=== PATIENT | female | born 1945 | race Caucasian/White ===

== ENCOUNTER → 2016-06-26 | Outpatient (REF) | payer MEDICARE ==
[~2016-06-26] MED LIST: ACET65TA OR; ADVI200T PO; ALEVE OR; APAP325T PO; ASPI1TAB PO; BABY81CH PO; BENADRYL PO; BYST5TAB2 PO; CALCIUM/VITAMIN D PO; CHOLECALCIFEROL PO; CLAR10TA13 PO; CLAR1TAB2 PO; CYMB1CAP5 PO; DARV100T OR; ENTO3CAP5 PO; FAMC250T3 PO; GAVICHW PO; LOMO2.5T PO; MAGN400T5 PO; OMEP20TA7 OR; OMEP40CA2 PO; PERC10TA17 PO; PERC5TAB8 PO; PERCOCET PO; PERI2TAB PO; POTA10CA PO; PRED1TABL PO; PREDPOW10 OR; PROC10TA PO; VITAMIN D50000 UNT OR; ZOFR20TA PO
[2016-06-26 18:49] LABS: FOLATE 3.1 NG/ML (>5.4)
== END ==
LOC: M LABDRAWC 16:40
PROVIDERS: ATTEND Nurse Practitioner Family
DX: D51.0 Vitamin B12 deficiency anemia due to intrinsic factor deficiency (principal)

== ENCOUNTER 2017-03-05 15:04 | Emergency (ER) | payer MEDICARE ==
[~2017-03-05] VITALS: Ht 162.6 cm; Wt 53.6 kg
[~2017-03-05 15:04] MED LIST changes: -APAP325T PO; +APAP325T4 PO; -CLAR10TA13 PO; +CLAR1TAB13 PO; -PERC10TA17 PO; +PERC10TA26 PO
[2017-03-05] MEDS ORDERED: NITROGLYCERIN 0.4 MG SUBL TABLET SL PRN (15:30)
[2017-03-05 15:44] LABS: MEAN CORPUSCULAR HEMOGLOBIN 32.4 pg (27.0-33.0); MEAN CORPUSCULAR HGB CONC 34.9 g/dl (32.0-36.5); MEAN CORPUSCULAR VOLUME 92.9 fl (80.0-96.0); PLATELET COUNT, AUTOMATED 468 10^3/uL (150-450); RED CELL DISTRIBUTION WIDTH 12.2 % (11.5-14.5); WHITE BLOOD COUNT 26.1 10^3/uL (4.0-10.0)
[2017-03-05 15:46] LABS: ADD MANUAL DIFFER YES; DIFF SLIDE NUMBER 255
[2017-03-05 15:54] LABS: INR 1.04
[2017-03-05] MEDS ORDERED: ISOVUE-370 76% 100ML VIAL (Q9967) As Ordered ONE (15:57)
--- NOTE | 2017-03-05 16:17 | ECGEPIP ---
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
[2017-03-05 16:19] LABS: ALBUMIN 2.7 GM/DL (3.2-5.2); ALBUMIN/GLOBULIN RATIO 0.75 (1.00-1.93); ALKALINE PHOSPHATASE 103 U/L (45-117); ALT/SGPT 15 U/L (12-78); ANION GAP 11 MEQ/L (8-16); AST/SGOT 10 U/L (15-37); BILIRUBIN,DIRECT 0.2 MG/DL (0.0-0.2); BILIRUBIN,TOTAL 0.5 MG/DL (0.2-1.0); BLOOD UREA NITROGEN 9 MG/DL (7-18); CALCIUM LEVEL 8.6 MG/DL (8.8-10.2); CARBON DIOXIDE LEVEL 22 MEQ/L (21-32); CHLORIDE LEVEL 96 MEQ/L (98-107); CREATININE FOR GFR 0.57 MG/DL (0.55-1.02); GLOMERULAR FILTRATION RATE > 60.0 (>39); GLUCOSE, FASTING 131 MG/DL (83-110); POTASSIUM SERUM 4.7 MEQ/L (3.5-5.1); SODIUM LEVEL 129 MEQ/L (136-145); TOTAL PROTEIN 6.3 GM/DL (6.4-8.2)
[2017-03-05] MEDS ORDERED: OXYC1TAB23 PO (16:23)
[2017-03-05] MEDS ORDERED: ASPI81TA85 PO (16:23)
[2017-03-05] MEDS ORDERED: ROBA750T4 PO (16:23)
[2017-03-05] MEDS ORDERED: MAGN400C2 PO (16:23)
[2017-03-05] MEDS ORDERED: LISI10TA4 PO (16:23)
[2017-03-05] MEDS ORDERED: PRED10TA2 PO (16:23)
[2017-03-05] MEDS ORDERED: NS 1,000 ML IV SCH (16:27)
--- NOTE | 2017-03-05 16:27 | REP ---
Portable chest x-ray: Single view: History: Chest pain. Comparison chest x-ray 05/15/2016. Comparison chest CT study of 03/08/2016. Findings: The patient is status post bilateral Penaloza guanako placement in the thoracolumbar spine. EKG electrodes are seen. The thoracic aorta is again noted to be quite dilated. The chest CT study from February of 2016 showed a 4.7 cm proximal descending distal transverse segment aneurysm. This appears larger than on the chest x-ray from 05/15/2016, consider repeat chest CT study, preferably with IV contrast. The lungs are well inflated and clear. Pleural angles are sharp. Heart size is not increased. Impression: Aneurysmally dilated thoracic aorta. This appears more prominent than on the 05/15/2016.6 prior study. Recommend reevaluation with chest CT, preferably with IV contrast, CT angiogram. Signed by Cruz Lucero MD 03/05/2017 04:45 P
[2017-03-05] MEDS ORDERED: LABETALOL HCL 100 MG/20 ML VIAL IV STA (16:36)
--- NOTE | 2017-03-05 16:37 | REP ---
CT angiogram of the chest with IV contrast: History: Chest pain. Increase in known thoracic aortic aneurysm on chest radiograph. Comparison chest CT study is from March 08, 2016. CT contrast dose: 100 ml of Isovue [address] angiographic findings: Aneurysmal dilation of the proximal descending thoracic aorta is again seen increased in size from the comparison study. Transverse dimension of the distal transverse proximal descending aortic junction is 6.5 cm today, previously 4.7 cm. The aneurysm shows irregular mural thrombus. There is abnormal soft tissue density in the mediastinum extending posterior to and surrounding the esophagus. The soft tissue density extends into the subcarinal region and right paratracheal region and is compatible with hematoma. It is new from the prior study. Mediastinal hematoma is seen anterior to the proximal descending thoracic aorta as well. The lumen of the thoracic aorta measures 5.5 cm in oblique dimension transversely. There is a small left posterior apical pleural cap. No definite free pleural effusion. No infiltrate is seen in the lung lamb. Penaloza rods are seen in the thoracic spine. There is no evidence of aortic dissection. No CT evidence of pulmonary embolism. Impression: 6.5 cm irregular proximal thoracic aortic aneurysm with evidence of mediastinal hematoma consistent with a contained rupture. The findings were discussed verbally with Dr. Robertson at the time of this CT acquisition. Signed by Cruz Lucero MD 03/05/2017 04:46 P
[2017-03-05 16:48] VITALS: BP 159/69
--- NOTE | 2017-03-05 16:52 | REP ---
CT angiogram of the abdomen with IV contrast: History: Chest pain. CT contrast dose: 100 ml of intravenous Isovue 370. CT findings: The distal thoracic aorta is aneurysmally dilated measuring 4.3 cm in AP dimension at the diaphragmatic hiatus. There is a small aneurysmal dilation at the renal artery origins, 2.8 cm in greatest AP dimension. No evidence of rupture of the abdominal aorta. 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 It is tiny. An intact superior mesenteric artery origin is seen. Collateral filling of the small celiac axis and hepatic and splenic artery is seen. An atrophic, but intact pancreas is seen. Gallbladder is unremarkable. Kidneys enhance symmetrically and are morphologically intact. There is some left colonic diverticulosis. No other abnormality. Impression: Distal thoracic aortic aneurysm. This tapers to a 2.8 cm AP dimension at the SMA origin. 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 It is quite small. Just below the renal arteries, there is a 2.8 cm small aneurysm of the aorta. No evidence of abdominal aortic aneurysm rupture. Signed by Cruz Lucero MD 03/05/2017 07:48 P
[2017-03-05 17:09] VITALS: BP 90/50
[2017-03-05] MEDS ORDERED: NS 500 ML IV ONE (17:15)
--- NOTE | 2017-03-14 12:39 | ED PDOC ---
Provider Note Date telephone call 03/05/2017. I received a phone call from Dr. Robertson regarding Mrs. Hodge having a ruptured thoracic aortic aneurysm. I reviewed the CT angiogram of the chest and abdomen and called Dr. Robertson and recommended that the patient be transferred to [facility] for treatment of her ruptured thoracic aortic aneurysm which was contained due to the lack of equipment and materials available for repair of her aneurysm at this time. Giovanni Faulkner MD Mar 14, 2017 12:39
== END 2017-03-05 17:13 | disposition short-term general hospital (02) ==
LOC: M ED 15:04
DX: I71.1 Thoracic aortic aneurysm, ruptured (principal); R94.31 Abnormal electrocardiogram [ECG] [EKG]; K21.9 Gastro-esophageal reflux disease without esophagitis; M81.0 Age-related osteoporosis without current pathological fracture; M35.3 Polymyalgia rheumatica; M47.814 Spondylosis without myelopathy or radiculopathy, thoracic region; F17.200 Nicotine dependence, unspecified, uncomplicated; Z82.49 Family history of ischemic heart disease and other diseases of the circulatory system; Z79.82 Long term (current) use of aspirin; Z79.899 Other long term (current) drug therapy
CPT/HCPCS: 36415; 71010; 71275; 74175; 80048; 80076; 82550; 82553; 83690; 84484; 85025; 85610; 85730; 86850; 86900; 86901; 93005; 93041; 94760; 96374; 99291; Q9967